=== PATIENT | female | born 1980 | race African-American/Black ===

== ENCOUNTER 2018-09-01 00:04 | Inpatient (IN) | payer BC ==
[2018-09-01] VITALS (7 sets, daily range): BP systolic 94–118; BP diastolic 57–73; Ht 162.6 cm; Wt 138.0 kg
[~2018-09-01] VITALS: Ht 162.6 cm; Wt 138.0 kg
[2018-09-01 00:42] LABS: microscopic required? NO
[2018-09-01 00:56] LABS: BASOPHIL % 0.7 % (0-2); PLATELET COUNT 163 x10^3mcL (130-400)
[2018-09-01 00:59] LABS: RED CELL DISTRIBUTION WIDTH 15.6 % (11.5-14.5)
[2018-09-01 00:59] LABS: UA SPECIFIC GRAVITY <=1.005 (1.005-1.035); urine erythrocyte NEGATIVE (NEGATIVE)
[2018-09-01 01:01] LABS: CALCIUM 9.1 mg/dL (8.5-10.1); CARBON DIOXIDE 27.7 mmol/L (21-32); CHLORIDE SERUM 104 mmol/L (98-107); GFR1 > 60 mL/min; GLUCOSE SERUM 103 mg/dL (74-106); POTASSIUM SERUM 3.4 mmol/L (3.5-5.1); SODIUM SERUM 141 mmol/L (136-145)
[2018-09-01 01:04] LABS: ALBUMIN 3.9 g/dL (3.4-5.0); ALKALINE PHOSPHATASE 78 U/L (46-116); ALT/SGPT 21 U/L (14-59); AMYLASE 110 U/L (25-115); AST/SGOT 22 U/L (15-37); BILIRUBIN TOTAL 0.27 mg/dL (0.20-1.00); CHOLESTEROL 195 mg/dL (<200); HDL CHOLESTEROL 46 mg/dL (40-60); LIPASE 123 IU/L (73-393); TOTAL PROTEIN, SERUM 7.9 g/dL (6.4-8.2)
[2018-09-01 01:07] LABS: AMPHETAMINE QUAL UR NONE DETECTED (See below)
[2018-09-01] MEDS ORDERED: SIMPONI AR50 MG/4 ML (02:03)
[2018-09-01] MEDS ORDERED: METHOTREXATE2.5 M2 PO (02:04)
[2018-09-01] MEDS ORDERED: PREDNISONE5 MG PO (02:04)
[2018-09-01] MEDS ORDERED: SULFASALAZINE500 M1 PO (02:04)
[2018-09-01] MEDS ORDERED: PROTONIX40 MG PO (02:05)
[2018-09-01] MEDS ORDERED: PROAIR HFA8.5 GM (02:05)
[2018-09-01] MEDS ORDERED: CLARITIN10 MG (02:06)
[2018-09-01] MEDS ORDERED: CALCITRATE950 MG (02:06)
[2018-09-01] MEDS ORDERED: BIOTIN2500 MCG PO (02:06)
[2018-09-01] MEDS ORDERED: B-COMPLEX WIT400 MC1 PO (02:06)
[2018-09-01 03:16] LABS: FREE T4 1.22 ng/dL (0.76-1.46); FREE THYROXINE INDEX 2.8 ug/dL (1.4-4.5)
[2018-09-01 07:20] LABS: BASOPHIL % 0.6 % (0-2); PLATELET COUNT 161 x10^3mcL (130-400)
[2018-09-01 07:23] LABS: CALCIUM 9.4 mg/dL (8.5-10.1); CARBON DIOXIDE 25.6 mmol/L (21-32); CHLORIDE SERUM 107 mmol/L (98-107); CREATININE SERUM 0.9 mg/dL (0.6-1.0); GFR1 > 60 mL/min; GLUCOSE SERUM 100 mg/dL (74-106); MAGNESIUM 2.2 mg/dL (1.8-2.4); PHOSPHOROUS 3.5 mg/dL (2.5-4.9); POTASSIUM SERUM 4.6 mmol/L (3.5-5.1); SODIUM SERUM 141 mmol/L (136-145)
[2018-09-01 07:24] LABS: RED CELL DISTRIBUTION WIDTH 15.1 % (11.5-14.5)
[2018-09-01 09:12] LABS: T3 TOTAL 1.17 ng/mL
[2018-09-02] VITALS (8 sets, daily range): BP systolic 92–138; BP diastolic 50–91
[2018-09-02 07:22] LABS: BASOPHIL % 0.4 % (0-2); PLATELET COUNT 171 x10^3mcL (130-400)
[2018-09-02 07:39] LABS: RED CELL DISTRIBUTION WIDTH 15.9 % (11.5-14.5)
[2018-09-02 07:50] LABS: CALCIUM 8.8 mg/dL (8.5-10.1); CARBON DIOXIDE 27.9 mmol/L (21-32); CHLORIDE SERUM 107 mmol/L (98-107); CREATININE SERUM 0.9 mg/dL (0.6-1.0); GFR1 > 60 mL/min; GLUCOSE SERUM 88 mg/dL (74-106); PHOSPHOROUS 3.9 mg/dL (2.5-4.9); POTASSIUM SERUM 3.6 mmol/L (3.5-5.1); SODIUM SERUM 142 mmol/L (136-145)
== END 2018-09-02 22:05 | disposition home or self-care (01) | DRG 206 ==
LOC: ED 00:04 → DU 01:40
PROVIDERS: Emergency Medicine; Internal Medicine Gastroenterology; ADMIT Internal Medicine
PROC: 0DB68ZX Excision of Stomach, Via Natural or Artificial Opening Endoscopic, Diagnostic (ICD-10-PCS; principal; 2018-09-02 11:30)
DX: M94.0 Chondrocostal junction syndrome [Tietze] (principal); Z68.43 Body mass index [BMI] 50.0-59.9, adult; E87.6 Hypokalemia; D64.9 Anemia, unspecified; K21.9 Gastro-esophageal reflux disease without esophagitis; K29.60 Other gastritis without bleeding; E66.01 Morbid (severe) obesity due to excess calories; J45.909 Unspecified asthma, uncomplicated; Z91.048 Other nonmedicinal substance allergy status; Z79.899 Other long term (current) drug therapy
CPT/HCPCS: 43235; 83880; 84439; J1200; J1610; J2250; J2310; J2405; J3010; J3490; J7030; J7512; Q0092; Q0162